=== PATIENT | female | born 1960 | race Caucasian/White ===

== ENCOUNTER → 2022-01-01 | Outpatient (CLI) | payer OTHER ==
[~2022-01-01] MED LIST: ADDAPRIN200 MG PO; ALLEGRA ALLERG180 MG PO; CELEXA20 MG PO; CYCLOBENZAPRINE10 MG PO; FLONASE 0.05% N16 GM; IBUPROFEN400 MG PO; IBUPROFEN800 MG PO; KEFLEX CAP 500500 MG PO; KEFLEX500 MG PO; NORCO 5-325 TA1 EACH PO; PERCOCET 5/325 T1 EA PO; VITAMIN C 500500 MG PO; VITAMIN C500 M4 PO; VITAMIN D250000 UNIT PO
== END ==
LOC: KOH-I 14:10
DX: M79.671 Pain in right foot (principal); M79.89 Other specified soft tissue disorders
CPT/HCPCS: 73630